=== PATIENT | male | born 2000 | race Hispanic/Latino ===

== ENCOUNTER 2023-01-17 08:43 | Emergency (ER) | payer SELFPAY ==
[2023-01-17] MEDS ORDERED: Ibuprofen 200 MG TAB ONE (09:18)
[2023-01-17] MEDS ORDERED: Acetaminophen 500 MG TAB ONE (09:18)
[2023-01-17 10:49] LABS: #Basophils 0.1 thou/uL (0.0-0.2); #Eosinphils 0.1 thou/uL (0.0-0.7); #Monocytes 0.9 thou/uL (0.11-0.59); #Neutrophils 6.8 thou/uL (1.40-6.50); %Basophils 0.5 % (0.0-1.0); %Eosinophils 1.2 % (0.0-10.0); %Monocytes 9.5 % (0.0-4.0); %Neutrophils 71.6 % (31.0-61.0); Hematocrit 44.5 % (42.0-52.0); Hemoglobin 15.2 g/dL (14.0-18.0); Mean Corpuscular HGB CONC 34.2 g/dL (32.0-36.0); Mean Corpuscular Hemoglobin 31.5 pg (25.0-35.0); Mean Corpuscular Volume 92.3 fl (78.0-98.0); Mean Platelet Volume 10.5 fL (7.4-10.4); Platelet Count 230 10x3/uL (130-400); RBC Distribution Width 12.1 % (11.5-14.5); Red Blood Cell (RBC) Count 4.82 mill/uL (4.00-5.20); White Blood Cell (WBC) Count 9.5 10x3/uL (4.8-10.8)
[2023-01-17 11:06] LABS: INR-International Normal Ratio 1.2; PTT 48.7 sec (22.9-36.1); Prothrombin Time 15.5 sec (12.0-14.7)
[2023-01-17 11:09] LABS: ALT (SGPT) 13 U/L (8-55); AST (SGOT) 16 U/L (5-34); Alkaline Phosphatase 70 U/L (50-130); Anion Gap 14 mmol/L (10-20); BUN (Urea Nitrogen) 13 mg/dL (8.9-20.6); Bilirubin, Total 0.7 mg/dL (0.2-1.2); Calc. Creatinine Clearance 0 mL/min (70-130); Calcium 9.9 mg/dL (7.8-10.44); Carbon Dioxide 25 mmol/L (22-29); Chloride 103 mmol/L (98-107); Estimated GFR 129; Globulin 2.9 g/dL (2.4-3.5); Glucose 90 mg/dL (70-105); Potassium 3.4 mmol/L (3.5-5.1); Protein, Total 7.9 g/dL (6.0-8.3); Sodium 139 mmol/L (136-145)
[2023-01-17 11:47] LABS: SARS-CoV-2 NAA Rapid Test Not Detected (NotDetected)
== END 2023-01-17 12:15 | disposition home or self-care (01) ==
LOC: ERS 08:43
DX: J93.11 Primary spontaneous pneumothorax (principal)
CPT/HCPCS: 36415; 71045; 80053; 83605; 85025; 85610; 85730; 93005

== ENCOUNTER 2023-01-23 12:05 | Outpatient (CLI) | payer OTHER | END 2023-01-23 12:06 | disposition home or self-care (01) | LOC: RAD 12:05 | PROVIDERS: ATTEND Thoracic Surgery (Cardiothoracic Vascular Surgery) | DX: J93.11 Primary spontaneous pneumothorax (principal) | CPT/HCPCS: 71046 ==